=== PATIENT | male | born 1950 | race Caucasian/White ===

== ENCOUNTER → 2025-06-27 07:52 | Outpatient (BNVA) | payer MEDICARE, OTHER, SELFPAY | PROVIDERS: Visit Provider Specialist | DX: R41.3 Other amnesia (principal); I63.9 Cerebral infarction, unspecified | CPT/HCPCS: 36415; 82542; 83520; 96116; 99205 ==

== ENCOUNTER → 2025-09-11 15:37 | Outpatient (BNVA) | payer MEDICARE, OTHER, SELFPAY | PROVIDERS: Visit Provider Specialist | DX: G43.711 Chronic migraine without aura, intractable, with status migrainosus (principal); I65.21 Occlusion and stenosis of right carotid artery; I69.398 Other sequelae of cerebral infarction; F06.31 Mood disorder due to known physiological condition with depressive features; R42 Dizziness and giddiness; R03.0 Elevated blood-pressure reading, without diagnosis of hypertension | CPT/HCPCS: 99214 ==